=== PATIENT | female | born 1975 | race Caucasian/White ===

== ENCOUNTER 2017-03-06 11:35 | Emergency (ER) | payer MEDICAID ==
[~2017-03-06] VITALS: Ht 177.8 cm; Wt 136.0 kg
[~2017-03-06 11:35] MED LIST: ALBU18HF INH; LABE1POW PO; NPH,100V INJ
[2017-03-06 11:37] VITALS: BP 147/100
== END 2017-03-06 14:30 | disposition home or self-care (01) ==
LOC: ED 12:53
DX: S46.912A Strain of unspecified muscle, fascia and tendon at shoulder and upper arm level, left arm, initial encounter (principal); S05.12XA Contusion of eyeball and orbital tissues, left eye, initial encounter; S60.012A Contusion of left thumb without damage to nail, initial encounter; I10 Essential (primary) hypertension; E11.9 Type 2 diabetes mellitus without complications; E66.01 Morbid (severe) obesity due to excess calories; Z68.41 Body mass index [BMI] 40.0-44.9, adult; J45.909 Unspecified asthma, uncomplicated; W01.0XXA Fall on same level from slipping, tripping and stumbling without subsequent striking against object, initial encounter; Y93.89 Activity, other specified; Y92.89 Other specified places as the place of occurrence of the external cause; Y99.8 Other external cause status
CPT/HCPCS: 70486; 99284

== ENCOUNTER 2020-01-27 17:51 | Inpatient (IN) | payer MEDICAID ==
[~2020-01-27] VITALS: Ht 175.3 cm; Wt 93.1 kg
--- NOTE | 2020-01-27 18:13 | NUR ---
Contacted Pt's Cal, phone number , who states that he is on his way.
[2020-01-27] MEDS ORDERED: SODIUM CHLORIDE 0.9% 1,000 ML IV ONE (18:17)
[2020-01-27] MEDS ORDERED: SODIUM CHLORIDE 0.9% 1,000ML IVBOLUS ONE (18:30)
[2020-01-27] MEDS ORDERED: SODIUM CHLORIDE FLUSH 10ML SYR IVF ONE (18:30)
[2020-01-27 18:58] LABS: BASOPHILS # (AUTO) 0.03 x10^3/uL (0-0.1); BASOPHILS % (AUTO) 0 % (0-1); EOSINOPHILS # (AUTO) 0.09 x10^3/uL (0-0.4); EOSINOPHILS % (AUTO) 1 % (1-7); LYMPHOCYTES # (AUTO) 1.71 x10^3/uL (1-3.4); LYMPHOCYTES % (AUTO) 21 % (22-44); MD NO; MEAN CORPUSCULAR HEMOGLOBIN 23.5 pg (27.0-34.8); MEAN CORPUSCULAR HGB CONC 31.2 g/dL (32.4-35.8); MEAN CORPUSCULAR VOLUME 75.3 fL (80-100); MEAN PLATELET VOLUME 6.1 fL (7.4-10.4); MONOCYTES # (AUTO) 0.69 x10^3/uL (0.2-0.8); MONOCYTES % (AUTO) 8 % (2-9); NEUTROPHILS # (AUTO) 5.82 x10^3/uL (1.8-6.8); NEUTROPHILS % (AUTO) 70 % (42-75); PLATELET COUNT 781 x10^3/uL (130-400); RED BLOOD COUNT 4.25 x10^6/uL (3.82-5.3); RED CELL DISTRIBUTION WIDTH 17.2 % (9.6-15.2)
[2020-01-27 19:01] LABS: INTERNATIONAL NORMALIZED RATIO 1.16 (0.93-1.1); PROTHROMBIN TIME 12.3 Seconds (9.6-11.5)
[2020-01-27 19:04] LABS: ALANINE AMINOTRANSFERASE 17 U/L (12-78); ALBUMIN 1.5 g/dL (3.4-5.0); ANION GAP 11 mmol/L (5-15); CALCIUM 10.9 mg/dL (8.5-10.1); CHLORIDE 90 mmol/L (98-107); CREATININE 0.76 mg/dL (0.55-1.02)
[2020-01-27 19:05] LABS: ALKALINE PHOSPHATASE 269 U/L (45-117); BILIRUBIN,TOTAL 0.4 mg/dL (0.2-1.0); TOTAL PROTEIN 7.5 g/dL (6.4-8.2)
[2020-01-27 19:10] LABS: SALICYLATE LEVEL < 1.7 mg/dL (2.8-20.0)
--- NOTE | 2020-01-27 19:37 | NUR ---
PT CONSTANTLY ATTEMPTING TO GET OUT OF BED. AT BEDSIDE TRYING HIS BEST TO KEEP PT CALM AND SAFE. DR NOTIFIED AND ORDERS RECEIVED.
[2020-01-27] MEDS ORDERED: LORazepam 2 MG/ML, 1ML ONE ×2 (19:41→22:02)
[2020-01-27] MEDS ORDERED: LORazepam 2 MG/ML, 1ML IVPush ONE ×2 (20:00→22:30)
--- NOTE | 2020-01-27 20:13 | NUR ---
PER RAD UNABLE TO COMPLETE CT D/T PT COMPLIANCE.
[2020-01-27 20:28] LABS: MICROSCOPIC INDICATED
[2020-01-27 20:29] LABS: CULTURE INDICATED? YES
--- NOTE | 2020-01-27 20:31 | NUR ---
CT DELAY, PT UNCOOPERATIVE.
[2020-01-27] MEDS ORDERED: OMNIPAQUE 350 MG/ML, 100ML BOTTLE ONE (22:24)
[2020-01-27] MEDS ORDERED: METOCLOPRAMIDE 5 MG/ML, 2ML ONE (23:13)
[2020-01-28] MEDS ORDERED: SODIUM CHLORIDE FLUSH 10ML SYR IVF PRN
[2020-01-28 00:55] VITALS: BP 119/75
[2020-01-28 01:40] VITALS: BP 110/73
[2020-01-28] MEDS ORDERED: SODIUM CHLORIDE 0.9% 1,000ML IVBOLUS ONE (02:00)
[2020-01-28] MEDS ORDERED: VANCOMYCIN PER PHARMACY MC PRN (02:00)
[2020-01-28 02:25] LABS: ANION GAP 10 mmol/L (5-15); CALCIUM 10.3 mg/dL (8.5-10.1); CHLORIDE 95 mmol/L (98-107); CREATININE 0.72 mg/dL (0.55-1.02)
[2020-01-28] MEDS ORDERED: VANCOMYCIN 2,000 MG in SODIUM CHLORIDE 0.9% 500 ML IV SCH (02:30)
[2020-01-28] MEDS ORDERED: hydrALAzine 20 MG/ML, 1ML IVPush PRN (02:30)
[2020-01-28] MEDS ORDERED: PHARMACOKINETIC CONSULTATION MC ONE (02:30)
[2020-01-28] MEDS ORDERED: ONDANSETRON 2MG/ML, 2ML IVPush PRN (02:30)
[2020-01-28] MEDS ORDERED: PHARMACOKINETIC MONITORING MC PRN (02:30)
[2020-01-28] MEDS: PIPERACILLIN/TAZO/PMX 3.375GM 50 ML IV SCH ×4 (03:30→20:58)
[2020-01-28] MEDS: ENOXAPARIN 40 MG/0.4 ML SQ SCH (03:55)
[2020-01-28 04:07] VITALS: BP 99/64
[2020-01-28 04:33] VITALS: BP 98/63
[2020-01-28] MEDS: INSULIN LISPRO 100 UNITS/ML, PEN SQ-INSULIN SCH ×5 (06:21→20:56)
[2020-01-28] MEDS: SODIUM CHLORIDE 0.9% 1,000 ML IV SCH ×2 (06:25→12:33)
[2020-01-28 06:28] LABS: AMPHETAMINE SCREEN, URINE Negative (Negative); BARBITURATE SCREEN, URINE Negative (Negative); BENZODIAZEPINE SCREEN, URINE Negative (Negative); CANNABINOID SCREEN, URINE Negative (Negative); COCAINE SCREEN, URINE Negative (Negative); METHADONE SCREEN, URINE Negative (Negative); OPIATE SCREEN, URINE Negative (Negative)
[2020-01-28 08:03] LABS: RAPID INFLUENZA A Negative (Negative); RAPID INFLUENZA B Negative (Negative)
[2020-01-28 09:56] LABS: BASOPHILS # (AUTO) 0.03 x10^3/uL (0-0.1); BASOPHILS % (AUTO) 0 % (0-1); EOSINOPHILS # (AUTO) 0.09 x10^3/uL (0-0.4); EOSINOPHILS % (AUTO) 1 % (1-7); LYMPHOCYTES # (AUTO) 1.68 x10^3/uL (1-3.4); LYMPHOCYTES % (AUTO) 18 % (22-44); MD NO; MEAN CORPUSCULAR HEMOGLOBIN 23.7 pg (27.0-34.8); MEAN CORPUSCULAR HGB CONC 31.5 g/dL (32.4-35.8); MEAN CORPUSCULAR VOLUME 75.3 fL (80-100); MEAN PLATELET VOLUME 5.8 fL (7.4-10.4); MONOCYTES # (AUTO) 0.91 x10^3/uL (0.2-0.8); MONOCYTES % (AUTO) 10 % (2-9); NEUTROPHILS # (AUTO) 6.75 x10^3/uL (1.8-6.8); NEUTROPHILS % (AUTO) 71 % (42-75); PLATELET COUNT 670 x10^3/uL (130-400); RED BLOOD COUNT 3.79 x10^6/uL (3.82-5.3); RED CELL DISTRIBUTION WIDTH 17.3 % (9.6-15.2)
[2020-01-28] MEDS ORDERED: LACTULOSE 20 GM/30 ML UDC NG PRN (10:00)
[2020-01-28] MEDS ORDERED: PHARMACY MAY ADJ FOR RENAL FX MC SCH (10:00)
[2020-01-28] MEDS ORDERED: FENTANYL PF 100 MCG/2ML IVPush PRN (10:00)
[2020-01-28] MEDS ORDERED: SENNA/DOCUSATE TABLET NG PRN (10:00)
[2020-01-28] MEDS ORDERED: LIDOCAINE-MPF 1%, 2ML ENDO PRN (10:00)
[2020-01-28] MEDS ORDERED: DEXTROSE 50%, 50ML SYRINGE IVPush PRN (10:00)
[2020-01-28] MEDS ORDERED: GLUCAGON 1 MG IM PRN (10:00)
[2020-01-28] MEDS ORDERED: DEXTROSE 4 GM TAB.CHEW PO PRN (10:00)
[2020-01-28] MEDS ORDERED: BISACODYL 10 MG SUPP PR PRN (10:00)
[2020-01-28 10:03] LABS: ALANINE AMINOTRANSFERASE 11 U/L (12-78); ALBUMIN 1.2 g/dL (3.4-5.0); ANION GAP 9 mmol/L (5-15); CALCIUM 9.5 mg/dL (8.5-10.1); CHLORIDE 100 mmol/L (98-107); CREATININE 0.77 mg/dL (0.55-1.02)
[2020-01-28 10:08] LABS: ALKALINE PHOSPHATASE 209 U/L (45-117); BILIRUBIN,TOTAL 0.4 mg/dL (0.2-1.0); TOTAL PROTEIN 6.1 g/dL (6.4-8.2); TRIGLYCERIDES 65 mg/dL (50-200); TROPONIN I 0.631 ng/mL (0.000-0.045)
[2020-01-28] MEDS: ALBUTEROL/IPRATROPIUM 2.5MG/0.5MG, 3 ML INLINE SCH ×2 (10:10→13:46)
--- NOTE | 2020-01-28 11:31 | NUR ---
TF GOAL if needed: w/ propofol: VITAL HIGH PROTEIN @ 60ML/HR off propofol: 65ML/HR
[2020-01-28] MEDS: NOREPINEPHRINE 8 MG in SODIUM CHLORIDE 0.9% 242 ML IV PRN ×2 (11:45→23:22)
[2020-01-28] MEDS: PROPOFOL 100 ML IV PRN ×3 (11:46→20:27)
[2020-01-28] MEDS: SODIUM CHLORIDE FLUSH 10ML SYR IVF SCH ×2 (11:51→20:30)
[2020-01-28] MEDS ORDERED: PROPOFOL 10 MG/ML, 20ML ONE (16:01)
[2020-01-28] MEDS ORDERED: ETOMIDATE 40 MG/20 ML ONE (16:01)
[2020-01-28] MEDS ORDERED: SUCCINYLCHOLINE 20 MG/ML, 10ML ONE (16:01)
[2020-01-28] MEDS ORDERED: PROPOFOL 10 MG/ML, 100ML IV ONE (16:01)
[2020-01-28] MEDS: VANCOMYCIN 1,800 MG in SODIUM CHLORIDE 0.9% 250 ML IV SCH (18:14)
[2020-01-28] MEDS: ALBUTEROL/IPRATROPIUM 2.5MG/0.5MG, 3 ML IPPB SCH ×2 (19:51→22:30)
[2020-01-28] MEDS: BUDESONIDE 0.5 MG/2 ML INHA IPPB SCH (20:12)
[2020-01-28] MEDS: methylPREDNISolone SOD SUCC 125 MG/2 ML IVPush SCH (20:28)
[2020-01-29] MEDS: SODIUM CHLORIDE 0.9% 1,000 ML IV SCH ×2 (01:18→17:02)
[2020-01-29] MEDS: PROPOFOL 100 ML IV PRN ×5 (01:19→20:50)
[2020-01-29] MEDS: ALBUTEROL/IPRATROPIUM 2.5MG/0.5MG, 3 ML IPPB SCH ×6 (02:28→22:16)
[2020-01-29] MEDS: methylPREDNISolone SOD SUCC 125 MG/2 ML IVPush SCH ×4 (03:15→20:49)
[2020-01-29] MEDS: ENOXAPARIN 40 MG/0.4 ML SQ SCH (03:15)
[2020-01-29] MEDS: PIPERACILLIN/TAZO/PMX 3.375GM 50 ML IV SCH ×4 (03:16→21:37)
[2020-01-29 04:24] VITALS: BP 91/48
[2020-01-29] MEDS: INSULIN LISPRO 100 UNITS/ML, PEN SQ-INSULIN SCH (04:36)
[2020-01-29 04:37] LABS: BASOPHILS % (AUTO) 0 % (0-1); EOSINOPHILS # (AUTO) 0.08 x10^3/uL (0-0.4); EOSINOPHILS % (AUTO) 1 % (1-7); LYMPHOCYTES % (AUTO) 6 % (22-44); MD NO; MEAN CORPUSCULAR HGB CONC 31.5 g/dL (32.4-35.8); MEAN CORPUSCULAR VOLUME 76.2 fL (80-100); MEAN PLATELET VOLUME 5.8 fL (7.4-10.4); MONOCYTES # (AUTO) 0.02 x10^3/uL (0.2-0.8); MONOCYTES % (AUTO) 0 % (2-9); NEUTROPHILS # (AUTO) 6.11 x10^3/uL (1.8-6.8); NEUTROPHILS % (AUTO) 92 % (42-75); PLATELET COUNT 705 x10^3/uL (130-400); RED CELL DISTRIBUTION WIDTH 17.5 % (9.6-15.2)
[2020-01-29 04:41] LABS: ANION GAP 13 mmol/L (5-15); CALCIUM 9.8 mg/dL (8.5-10.1); CHLORIDE 102 mmol/L (98-107)
[2020-01-29 04:44] LABS: CREATININE 0.72 mg/dL (0.55-1.02); VANCOMYCIN,TROUGH 18.3 mcg/mL (5.0-10.0)
[2020-01-29] MEDS: VANCOMYCIN 1,800 MG in SODIUM CHLORIDE 0.9% 250 ML IV SCH ×2 (06:02→23:29)
[2020-01-29] MEDS: BUDESONIDE 0.5 MG/2 ML INHA IPPB SCH ×2 (06:40→19:11)
[2020-01-29] MEDS ORDERED: MAGNESIUM SULFATE PMX 2GM/50ML 50 ML IV ONE (08:00)
[2020-01-29] MEDS ORDERED: DEXTROSE 50%, 50ML SYRINGE IV PRN (09:30)
[2020-01-29] MEDS ORDERED: INSULIN REGULAR 100 UNITS/ML, 3ML VIAL IV ONE (09:30)
[2020-01-29] MEDS ORDERED: INSULIN INFUSION FOR ICU PROTOCOL XX SCH (09:30)
[2020-01-29] MEDS: SODIUM CHLORIDE FLUSH 10ML SYR IVF SCH ×2 (10:17→20:50)
[2020-01-29] MEDS: REGULAR INSULIN 100 UNITS in SODIUM CHLORIDE 0.9% 99 ML IV PRN ×2 (10:17→21:09)
[2020-01-29 10:59] LABS: ACETONE, SERUM Large (80mg/dL) (Negative)
[2020-01-29] MEDS: FAMOTIDINE 20 MG/2 ML IVPush SCH (20:49)
[2020-01-29] MEDS: ACETAMINOPHEN 325 MG TABLET PO PRN (20:51)
[2020-01-30] MEDS: ALBUTEROL/IPRATROPIUM 2.5MG/0.5MG, 3 ML IPPB SCH ×2 (03:00→07:18)
[2020-01-30] MEDS: ENOXAPARIN 40 MG/0.4 ML SQ SCH (03:09)
[2020-01-30] MEDS: methylPREDNISolone SOD SUCC 125 MG/2 ML IVPush SCH ×4 (03:09→20:38)
[2020-01-30 04:00] VITALS: BP 96/49
[2020-01-30 04:19] LABS: BASOPHILS # (AUTO) 0.04 x10^3/uL (0-0.1); BASOPHILS % (AUTO) 0 % (0-1); EOSINOPHILS # (AUTO) 0.01 x10^3/uL (0-0.4); EOSINOPHILS % (AUTO) 0 % (1-7); LYMPHOCYTES # (AUTO) 1.08 x10^3/uL (1-3.4); LYMPHOCYTES % (AUTO) 10 % (22-44); MD NO; MEAN CORPUSCULAR HEMOGLOBIN 23.7 pg (27.0-34.8); MEAN CORPUSCULAR HGB CONC 31.6 g/dL (32.4-35.8); MONOCYTES # (AUTO) 0.58 x10^3/uL (0.2-0.8); MONOCYTES % (AUTO) 5 % (2-9); NEUTROPHILS % (AUTO) 84 % (42-75); PLATELET COUNT 882 x10^3/uL (130-400); RED BLOOD COUNT 4.01 x10^6/uL (3.82-5.3); RED CELL DISTRIBUTION WIDTH 17.4 % (9.6-15.2)
[2020-01-30 04:22] LABS: ANION GAP 8 mmol/L (5-15); CALCIUM 9.8 mg/dL (8.5-10.1); CHLORIDE 111 mmol/L (98-107); CREATININE 0.69 mg/dL (0.55-1.02)
[2020-01-30] MEDS: PIPERACILLIN/TAZO/PMX 3.375GM 50 ML IV SCH ×4 (04:27→20:41)
[2020-01-30] MEDS: PROPOFOL 100 ML IV PRN (05:05)
[2020-01-30] MEDS ORDERED: MIDAZOLAM 1 MG/ML, 2ML ONE (06:07)
[2020-01-30] MEDS: SODIUM CHLORIDE 0.9% 1,000 ML IV SCH ×3 (06:11→18:07)
[2020-01-30] MEDS ORDERED: MIDAZOLAM 1 MG/ML, 2ML IVPush PRN (06:30)
[2020-01-30] MEDS: REGULAR INSULIN 100 UNITS in SODIUM CHLORIDE 0.9% 99 ML IV PRN ×2 (06:41→22:03)
[2020-01-30] MEDS: BUDESONIDE 0.5 MG/2 ML INHA IPPB SCH ×2 (07:18→18:49)
[2020-01-30] MEDS: POTASSIUM CHLORIDE 10% 40 MEQ/30 ML UDC PO SCH ×3 (08:47→20:40)
[2020-01-30] MEDS: FAMOTIDINE 20 MG/2 ML IVPush SCH ×2 (08:47→20:39)
[2020-01-30] MEDS: SODIUM CHLORIDE FLUSH 10ML SYR IVF SCH ×2 (08:49→20:39)
[2020-01-30] MEDS: SENNOSIDES 8.8 MG/5 ML ORAL SOL NG SCH ×2 (10:23→20:40)
[2020-01-30] MEDS ORDERED: LACTULOSE 20 GM/30 ML UDC PO PRN (10:30)
[2020-01-30] MEDS: SENNA 176 MG/5 ML ORAL SOL NG PRN ×2 (11:27→11:32)
[2020-01-30] MEDS ORDERED: ALBUTEROL/IPRATROPIUM 2.5MG/0.5MG, 3 ML IPPB PRN (14:30)
[2020-01-30] MEDS: ALBUTEROL/IPRATROPIUM 2.5MG/0.5MG, 3 ML INLINE SCH ×3 (15:35→23:00)
[2020-01-30] MEDS: ACETAMINOPHEN 325 MG TABLET PO PRN (20:40)
[2020-01-30] MEDS: VANCOMYCIN 1,800 MG in SODIUM CHLORIDE 0.9% 250 ML IV SCH (23:42)
[2020-01-31] MEDS: PROPOFOL 100 ML IV PRN ×4 (00:33→22:11)
[2020-01-31] MEDS: ALBUTEROL/IPRATROPIUM 2.5MG/0.5MG, 3 ML INLINE SCH ×6 (02:38→23:00)
[2020-01-31] MEDS: PIPERACILLIN/TAZO/PMX 3.375GM 50 ML IV SCH ×4 (02:49→21:26)
[2020-01-31] MEDS: ENOXAPARIN 40 MG/0.4 ML SQ SCH (02:49)
[2020-01-31] MEDS: methylPREDNISolone SOD SUCC 125 MG/2 ML IVPush SCH ×4 (02:52→21:27)
[2020-01-31 03:59] LABS: ANION GAP 7 mmol/L (5-15); CALCIUM 8.8 mg/dL (8.5-10.1); CHLORIDE 113 mmol/L (98-107)
[2020-01-31 04:02] LABS: CREATININE 0.86 mg/dL (0.55-1.02); TRIGLYCERIDES 101 mg/dL (50-200)
[2020-01-31 04:06] VITALS: BP 99/57
[2020-01-31 04:09] LABS: BASOPHILS % (AUTO) 0 % (0-1); EOSINOPHILS % (AUTO) 0 % (1-7); LYMPHOCYTES # (AUTO) 0.67 x10^3/uL (1-3.4); LYMPHOCYTES % (AUTO) 5 % (22-44); MD NO; MEAN CORPUSCULAR HEMOGLOBIN 23.2 pg (27.0-34.8); MEAN CORPUSCULAR HGB CONC 30.6 g/dL (32.4-35.8); MEAN CORPUSCULAR VOLUME 75.7 fL (80-100); MEAN PLATELET VOLUME 5.9 fL (7.4-10.4); MONOCYTES # (AUTO) 0.29 x10^3/uL (0.2-0.8); MONOCYTES % (AUTO) 2 % (2-9); NEUTROPHILS # (AUTO) 12.15 x10^3/uL (1.8-6.8); NEUTROPHILS % (AUTO) 93 % (42-75); PLATELET COUNT 773 x10^3/uL (130-400); RED BLOOD COUNT 3.78 x10^6/uL (3.82-5.3); RED CELL DISTRIBUTION WIDTH 17.6 % (9.6-15.2)
[2020-01-31] MEDS: BUDESONIDE 0.5 MG/2 ML INHA IPPB SCH ×2 (06:56→19:27)
[2020-01-31] MEDS: ACETAMINOPHEN 325 MG TABLET PO PRN (08:45)
[2020-01-31] MEDS: REGULAR INSULIN 100 UNITS in SODIUM CHLORIDE 0.9% 99 ML IV PRN (08:47)
[2020-01-31] MEDS: FAMOTIDINE 20 MG/2 ML IVPush SCH ×2 (08:48→21:27)
[2020-01-31] MEDS: SODIUM CHLORIDE FLUSH 10ML SYR IVF SCH ×2 (08:48→21:28)
[2020-01-31] MEDS: DOCUSATE 50 MG/5 ML, 10ML UDC PO SCH (08:48)
[2020-01-31] MEDS: SODIUM CHLORIDE 0.9% 1,000 ML IV SCH ×2 (11:48→22:12)
[2020-01-31] MEDS: INSULIN LISPRO 100 UNITS/ML, PEN SQ-INSULIN SCH ×2 (16:23→21:41)
[2020-01-31] MEDS: FUROSEMIDE 20 MG/2 ML IV SCH (16:24)
[2020-01-31] MEDS ORDERED: INSULIN GLARGINE 100 UNITS/ML, PEN SQ-INSULIN SCH (21:00)
[2020-02-01] MEDS: VANCOMYCIN 1,800 MG in SODIUM CHLORIDE 0.9% 250 ML IV SCH ×2 (00:22→23:50)
[2020-02-01] MEDS: methylPREDNISolone SOD SUCC 125 MG/2 ML IVPush SCH ×4 (02:43→21:02)
[2020-02-01] MEDS: ENOXAPARIN 40 MG/0.4 ML SQ SCH (02:44)
[2020-02-01] MEDS: PROPOFOL 100 ML IV PRN (02:46)
[2020-02-01] MEDS: ALBUTEROL/IPRATROPIUM 2.5MG/0.5MG, 3 ML INLINE SCH ×2 (03:36→07:00)
[2020-02-01] MEDS: PIPERACILLIN/TAZO/PMX 3.375GM 50 ML IV SCH ×4 (03:43→21:10)
[2020-02-01 04:09] LABS: BASOPHILS # (AUTO) 0.05 x10^3/uL (0-0.1); BASOPHILS % (AUTO) 0 % (0-1); EOSINOPHILS % (AUTO) 0 % (1-7); LYMPHOCYTES # (AUTO) 0.75 x10^3/uL (1-3.4); LYMPHOCYTES % (AUTO) 6 % (22-44); MD NO; MEAN CORPUSCULAR HEMOGLOBIN 23.7 pg (27.0-34.8); MEAN CORPUSCULAR HGB CONC 31.5 g/dL (32.4-35.8); MEAN CORPUSCULAR VOLUME 75.2 fL (80-100); MEAN PLATELET VOLUME 6.2 fL (7.4-10.4); MONOCYTES # (AUTO) 0.24 x10^3/uL (0.2-0.8); MONOCYTES % (AUTO) 2 % (2-9); NEUTROPHILS # (AUTO) 11.19 x10^3/uL (1.8-6.8); NEUTROPHILS % (AUTO) 92 % (42-75); PLATELET COUNT 718 x10^3/uL (130-400); RED BLOOD COUNT 3.91 x10^6/uL (3.82-5.3); RED CELL DISTRIBUTION WIDTH 17.8 % (9.6-15.2)
[2020-02-01 04:29] LABS: ANION GAP 8 mmol/L (5-15); CALCIUM 8.7 mg/dL (8.5-10.1); CHLORIDE 106 mmol/L (98-107); CREATININE 0.96 mg/dL (0.55-1.02)
[2020-02-01 05:00] VITALS: BP 128/65
[2020-02-01] MEDS: DOCUSATE 50 MG/5 ML, 10ML UDC PO SCH (08:21)
[2020-02-01] MEDS: SODIUM CHLORIDE FLUSH 10ML SYR IVF SCH ×2 (08:49→21:02)
[2020-02-01] MEDS: FAMOTIDINE 20 MG/2 ML IVPush SCH ×2 (08:49→21:02)
[2020-02-01] MEDS: FUROSEMIDE 20 MG/2 ML IV SCH (08:49)
[2020-02-01] MEDS: SODIUM CHLORIDE 0.9% 1,000 ML IV SCH (08:51)
[2020-02-01] MEDS: INSULIN LISPRO 100 UNITS/ML, PEN VERY HIGH DOSE SS SQ-INSULIN SCH ×4 (08:58→21:21)
[2020-02-01] MEDS: BUDESONIDE 0.5 MG/2 ML INHA IPPB SCH ×2 (09:00→22:57)
[2020-02-01] MEDS ORDERED: INSULIN GLARGINE 100 UNITS/ML, PEN SQ-INSULIN SCH (09:00)
[2020-02-01] MEDS ORDERED: ALBUTEROL/IPRATROPIUM 2.5MG/0.5MG, 3 ML NPPB SCH (11:00)
[2020-02-01] MEDS: FUROSEMIDE 40 MG/4 ML IV SCH (17:50)
[2020-02-02] MEDS: SODIUM CHLORIDE 0.9% 1,000 ML IV SCH (00:50)
[2020-02-02] MEDS: ENOXAPARIN 40 MG/0.4 ML SQ SCH (03:00)
[2020-02-02] MEDS: methylPREDNISolone SOD SUCC 125 MG/2 ML IVPush SCH ×4 (03:00→21:58)
[2020-02-02] MEDS: PIPERACILLIN/TAZO/PMX 3.375GM 50 ML IV SCH ×4 (03:00→22:00)
[2020-02-02] MEDS: ACETAMINOPHEN 325 MG TABLET PO PRN ×2 (04:30→08:51)
[2020-02-02 05:00] VITALS: BP 149/82
[2020-02-02 05:52] LABS: BASOPHILS # (AUTO) 0.06 x10^3/uL (0-0.1); BASOPHILS % (AUTO) 0 % (0-1); EOSINOPHILS # (AUTO) 0.01 x10^3/uL (0-0.4); EOSINOPHILS % (AUTO) 0 % (1-7); LYMPHOCYTES # (AUTO) 1.15 x10^3/uL (1-3.4); LYMPHOCYTES % (AUTO) 9 % (22-44); MD NO; MEAN CORPUSCULAR HEMOGLOBIN 23.4 pg (27.0-34.8); MEAN CORPUSCULAR HGB CONC 31.2 g/dL (32.4-35.8); MEAN CORPUSCULAR VOLUME 74.9 fL (80-100); MEAN PLATELET VOLUME 6.6 fL (7.4-10.4); MONOCYTES # (AUTO) 0.42 x10^3/uL (0.2-0.8); MONOCYTES % (AUTO) 3 % (2-9); NEUTROPHILS # (AUTO) 12.01 x10^3/uL (1.8-6.8); NEUTROPHILS % (AUTO) 88 % (42-75); PLATELET COUNT 685 x10^3/uL (130-400); RED BLOOD COUNT 4.65 x10^6/uL (3.82-5.3)
[2020-02-02 05:55] LABS: ANION GAP 7 mmol/L (5-15); CALCIUM 9.1 mg/dL (8.5-10.1); CHLORIDE 97 mmol/L (98-107)
[2020-02-02 05:57] LABS: CREATININE 0.75 mg/dL (0.55-1.02)
[2020-02-02] MEDS: POTASSIUM CHLORIDE 20 MEQ TAB.ER.PRT PO SCH (08:28)
[2020-02-02] MEDS: FUROSEMIDE 40 MG/4 ML IV SCH ×2 (08:28→17:59)
[2020-02-02] MEDS: SODIUM CHLORIDE FLUSH 10ML SYR IVF SCH ×2 (08:30→22:01)
[2020-02-02] MEDS: FAMOTIDINE 20 MG/2 ML IVPush SCH (08:30)
[2020-02-02] MEDS: DOCUSATE 50 MG/5 ML, 10ML UDC PO SCH (08:30)
[2020-02-02] MEDS: INSULIN LISPRO 100 UNITS/ML, PEN VERY HIGH DOSE SS SQ-INSULIN SCH ×4 (08:30→22:00)
[2020-02-02] MEDS ORDERED: INSULIN GLARGINE 100 UNITS/ML, PEN SQ-INSULIN SCH ×3 (09:00→21:00)
[2020-02-02] MEDS: BUDESONIDE 0.5 MG/2 ML INHA IPPB SCH ×2 (09:00→21:00)
[2020-02-02 14:00] VITALS: BP 102/63
[2020-02-02] MEDS ORDERED: INSULIN LISPRO 100 UNIT/ML, 3ML VIAL SQ-INSULIN SCH (17:00)
[2020-02-02] MEDS: INSULIN LISPRO 100 UNITS/ML, PEN SQ-INSULIN SCH (18:18)
[2020-02-02 18:42] VITALS: BP 140/96
[2020-02-03 02:19] VITALS: BP 158/84
[2020-02-03] MEDS: PIPERACILLIN/TAZO/PMX 3.375GM 50 ML IV SCH ×4 (03:01→21:19)
[2020-02-03] MEDS: ENOXAPARIN 40 MG/0.4 ML SQ SCH (03:01)
[2020-02-03] MEDS: ACETAMINOPHEN 325 MG TABLET PO PRN ×3 (03:15→18:50)
[2020-02-03 04:49] LABS: BASOPHILS # (AUTO) 0.07 x10^3/uL (0-0.1); BASOPHILS % (AUTO) 1 % (0-1); EOSINOPHILS % (AUTO) 0 % (1-7); LYMPHOCYTES # (AUTO) 1.09 x10^3/uL (1-3.4); LYMPHOCYTES % (AUTO) 10 % (22-44); MD NO; MEAN CORPUSCULAR HEMOGLOBIN 23.7 pg (27.0-34.8); MEAN CORPUSCULAR HGB CONC 31.3 g/dL (32.4-35.8); MEAN CORPUSCULAR VOLUME 75.7 fL (80-100); MEAN PLATELET VOLUME 6.5 fL (7.4-10.4); MONOCYTES # (AUTO) 0.38 x10^3/uL (0.2-0.8); MONOCYTES % (AUTO) 3 % (2-9); NEUTROPHILS # (AUTO) 9.73 x10^3/uL (1.8-6.8); NEUTROPHILS % (AUTO) 86 % (42-75); PLATELET COUNT 609 x10^3/uL (130-400); RED BLOOD COUNT 4.73 x10^6/uL (3.82-5.3)
[2020-02-03 04:56] LABS: ANION GAP 10 mmol/L (5-15); CALCIUM 8.7 mg/dL (8.5-10.1); CHLORIDE 93 mmol/L (98-107)
[2020-02-03 04:57] LABS: CREATININE 0.81 mg/dL (0.55-1.02)
[2020-02-03 07:55] VITALS: BP 152/76
[2020-02-03] MEDS ORDERED: DOCUSATE 100 MG CAPSULE ONE (08:06)
[2020-02-03] MEDS: methylPREDNISolone SOD SUCC 125 MG/2 ML IVPush SCH (08:17)
[2020-02-03] MEDS: FUROSEMIDE 40 MG/4 ML IV SCH ×2 (08:17→16:17)
[2020-02-03] MEDS: POTASSIUM CHLORIDE 20 MEQ TAB.ER.PRT PO SCH (08:22)
[2020-02-03] MEDS: LISINOPRIL 10 MG TABLET PO SCH ×2 (08:22→20:44)
[2020-02-03] MEDS: DOCUSATE 50 MG/5 ML, 10ML UDC PO SCH (08:23)
[2020-02-03] MEDS: SODIUM CHLORIDE FLUSH 10ML SYR IVF SCH ×2 (08:23→20:47)
[2020-02-03] MEDS: INSULIN LISPRO 100 UNITS/ML, PEN SQ-INSULIN SCH ×3 (08:26→17:26)
[2020-02-03] MEDS: INSULIN LISPRO 100 UNITS/ML, PEN VERY HIGH DOSE SS SQ-INSULIN SCH ×3 (08:27→17:27)
[2020-02-03] MEDS: BUDESONIDE 0.5 MG/2 ML INHA IPPB SCH ×2 (09:00→21:08)
[2020-02-03] MEDS ORDERED: INSULIN GLARGINE 100 UNITS/ML, PEN SQ-INSULIN SCH (09:00)
[2020-02-03] MEDS: ALBUTEROL/IPRATROPIUM 2.5MG/0.5MG, 3 ML NPPB PRN ×2 (11:34→17:41)
[2020-02-03 12:27] VITALS: BP 147/77
[2020-02-03 17:26] LABS: ANION GAP 10 mmol/L (5-15); CALCIUM 9.4 mg/dL (8.5-10.1); CHLORIDE 91 mmol/L (98-107); CREATININE 1.02 mg/dL (0.55-1.02)
[2020-02-03] MEDS: INSULIN REGULAR 100 UNITS/ML, 3ML VIAL SQ-INSULIN SCH ×2 (18:48→21:15)
[2020-02-03 19:10] VITALS: BP 138/73
[2020-02-03] MEDS: TRAZODONE 50MG TABLET PO SCH (20:44)
[2020-02-03] MEDS: INSULIN GLARGINE 100 UNITS/ML, PEN SQ-INSULIN SCH (21:15)
[2020-02-04] MEDS: INSULIN REGULAR 100 UNITS/ML, 3ML VIAL SQ-INSULIN SCH ×6 (00:20→21:35)
[2020-02-04] MEDS: ACETAMINOPHEN 325 MG TABLET PO PRN (00:22)
[2020-02-04 00:24] VITALS: BP 121/67
[2020-02-04] MEDS: PIPERACILLIN/TAZO/PMX 3.375GM 50 ML IV SCH ×4 (03:14→23:29)
[2020-02-04] MEDS: ENOXAPARIN 40 MG/0.4 ML SQ SCH (03:19)
[2020-02-04 04:44] LABS: BASOPHILS # (AUTO) 0.11 x10^3/uL (0-0.1); BASOPHILS % (AUTO) 1 % (0-1); EOSINOPHILS # (AUTO) 0.19 x10^3/uL (0-0.4); EOSINOPHILS % (AUTO) 1 % (1-7); LYMPHOCYTES # (AUTO) 3.65 x10^3/uL (1-3.4); LYMPHOCYTES % (AUTO) 24 % (22-44); MD NO; MEAN CORPUSCULAR HEMOGLOBIN 23.7 pg (27.0-34.8); MEAN CORPUSCULAR HGB CONC 31.4 g/dL (32.4-35.8); MEAN CORPUSCULAR VOLUME 75.6 fL (80-100); MEAN PLATELET VOLUME 6.4 fL (7.4-10.4); MONOCYTES # (AUTO) 1.25 x10^3/uL (0.2-0.8); MONOCYTES % (AUTO) 8 % (2-9); NEUTROPHILS # (AUTO) 9.74 x10^3/uL (1.8-6.8); NEUTROPHILS % (AUTO) 65 % (42-75); PLATELET COUNT 660 x10^3/uL (130-400); RED BLOOD COUNT 5.14 x10^6/uL (3.82-5.3); RED CELL DISTRIBUTION WIDTH 18.2 % (9.6-15.2)
[2020-02-04 04:58] LABS: ANION GAP 6 mmol/L (5-15); CALCIUM 9.7 mg/dL (8.5-10.1); CHLORIDE 96 mmol/L (98-107); CREATININE 0.73 mg/dL (0.55-1.02)
[2020-02-04] MEDS ORDERED: POTASSIUM CHLORIDE 40 MEQ in SODIUM CHLORIDE 0.9% 500 ML IV ONE (06:30)
[2020-02-04] MEDS: FUROSEMIDE 40 MG/4 ML IV SCH (07:46)
[2020-02-04] MEDS: LISINOPRIL 10 MG TABLET PO SCH (07:46)
[2020-02-04] MEDS: DOCUSATE 50 MG/5 ML, 10ML UDC PO SCH ×2 (07:46→07:54)
[2020-02-04] MEDS: LORATADINE 10 MG TABLET PO SCH (07:46)
[2020-02-04] MEDS: POTASSIUM CHLORIDE 20 MEQ TAB.ER.PRT PO SCH (07:46)
[2020-02-04] MEDS: SODIUM CHLORIDE FLUSH 10ML SYR IVF SCH ×2 (07:47→21:27)
[2020-02-04 08:06] VITALS: BP 102/63
[2020-02-04] MEDS: INSULIN GLARGINE 100 UNITS/ML, PEN SQ-INSULIN SCH ×2 (08:21→21:36)
[2020-02-04] MEDS: ALBUTEROL/IPRATROPIUM 2.5MG/0.5MG, 3 ML NPPB PRN ×2 (09:50→19:00)
[2020-02-04] MEDS: BUDESONIDE 0.5 MG/2 ML INHA IPPB SCH ×2 (09:50→19:00)
[2020-02-04] MEDS ORDERED: APAP/CODEINE 300/30MG TABLET PO SCH (13:30)
[2020-02-04 13:37] VITALS: BP 114/72
[2020-02-04 20:06] VITALS: BP 115/68
[2020-02-04] MEDS: TRAZODONE 50MG TABLET PO SCH (23:29)
[2020-02-05 02:09] VITALS: BP 101/64
[2020-02-05 04:43] LABS: ANION GAP 5 mmol/L (5-15); CALCIUM 9.7 mg/dL (8.5-10.1); CHLORIDE 97 mmol/L (98-107); CREATININE 0.59 mg/dL (0.55-1.02)
[2020-02-05 04:45] LABS: BASOPHILS # (AUTO) 0.07 x10^3/uL (0-0.1); BASOPHILS % (AUTO) 1 % (0-1); EOSINOPHILS # (AUTO) 0.25 x10^3/uL (0-0.4); EOSINOPHILS % (AUTO) 3 % (1-7); LYMPHOCYTES # (AUTO) 2.19 x10^3/uL (1-3.4); LYMPHOCYTES % (AUTO) 22 % (22-44); MD NO; MEAN CORPUSCULAR HEMOGLOBIN 23.4 pg (27.0-34.8); MEAN CORPUSCULAR HGB CONC 30.7 g/dL (32.4-35.8); MEAN CORPUSCULAR VOLUME 76.3 fL (80-100); MONOCYTES # (AUTO) 0.78 x10^3/uL (0.2-0.8); MONOCYTES % (AUTO) 8 % (2-9); NEUTROPHILS # (AUTO) 6.87 x10^3/uL (1.8-6.8); NEUTROPHILS % (AUTO) 68 % (42-75); PLATELET COUNT 445 x10^3/uL (130-400); RED BLOOD COUNT 4.77 x10^6/uL (3.82-5.3)
[2020-02-05] MEDS: PIPERACILLIN/TAZO/PMX 3.375GM 50 ML IV SCH ×2 (05:05→11:57)
[2020-02-05] MEDS: ENOXAPARIN 40 MG/0.4 ML SQ SCH (05:07)
[2020-02-05] MEDS: LORATADINE 10 MG TABLET PO SCH (08:09)
[2020-02-05] MEDS: POTASSIUM CHLORIDE 20 MEQ TAB.ER.PRT PO SCH (08:09)
[2020-02-05] MEDS: SODIUM CHLORIDE FLUSH 10ML SYR IVF SCH (08:10)
[2020-02-05] MEDS: DOCUSATE 50 MG/5 ML, 10ML UDC PO SCH (08:10)
[2020-02-05] MEDS: INSULIN GLARGINE 100 UNITS/ML, PEN SQ-INSULIN SCH (08:20)
[2020-02-05] MEDS: INSULIN REGULAR 100 UNITS/ML, 3ML VIAL SQ-INSULIN SCH ×2 (08:20→11:13)
[2020-02-05 08:34] VITALS: BP 96/62
[2020-02-05] MEDS ORDERED: FUROSEMIDE 40 MG TABLET PO SCH (09:00)
[2020-02-05] MEDS: ACETAMINOPHEN 325 MG TABLET PO PRN (11:12)
[2020-02-05] MEDS ORDERED: ALBU18HF INH (11:53)
[2020-02-05] MEDS ORDERED: NPH,100V INJ (11:53)
[2020-02-05] MEDS ORDERED: AMOX1TAB64 PO (11:53)
[2020-02-05 13:45] VITALS: BP 99/63
== END 2020-02-05 15:04 | disposition home or self-care (01) | DRG 870 ==
LOC: ED 20:46 → EDIP 01-28 00:10 → 4NW 01-28 00:27 → 4EST 01-28 04:29 → CCU 01-28 05:35 → 4NW 02-02 18:32 → DCLOUNGE 02-05 14:55
PROVIDERS: ADMIT Family Medicine; ATTEND Hospitalist
PROC: 5A1955Z Respiratory Ventilation, Greater than 96 Consecutive Hours (ICD-10-PCS; principal; 2020-01-28)
PROC: 0BH17EZ Insertion of Endotracheal Airway into Trachea, Via Natural or Artificial Opening (ICD-10-PCS; 2020-01-28)
PROC: 0BJ08ZZ Inspection of Tracheobronchial Tree, Via Natural or Artificial Opening Endoscopic (ICD-10-PCS; 2020-01-28)
PROC: 02HV33Z Insertion of Infusion Device into Superior Vena Cava, Percutaneous Approach (ICD-10-PCS; 2020-01-28)
PROC: B548ZZA Ultrasonography of Superior Vena Cava, Guidance (ICD-10-PCS; 2020-01-28)
DX: A41.9 Sepsis, unspecified organism (principal); E43 Unspecified severe protein-calorie malnutrition; G93.41 Metabolic encephalopathy; J18.9 Pneumonia, unspecified organism; J96.21 Acute and chronic respiratory failure with hypoxia; R65.21 Severe sepsis with septic shock; C64.9 Malignant neoplasm of unspecified kidney, except renal pelvis; C77.1 Secondary and unspecified malignant neoplasm of intrathoracic lymph nodes; C78.01 Secondary malignant neoplasm of right lung; C78.02 Secondary malignant neoplasm of left lung; C79.51 Secondary malignant neoplasm of bone; E87.1 Hypo-osmolality and hyponatremia; J81.1 Chronic pulmonary edema; Z99.11 Dependence on respirator [ventilator] status; D50.9 Iron deficiency anemia, unspecified; E11.65 Type 2 diabetes mellitus with hyperglycemia; Z68.30 Body mass index [BMI] 30.0-30.9, adult; Z88.8 Allergy status to other drugs, medicaments and biological substances; E83.52 Hypercalcemia; E87.6 Hypokalemia; I10 Essential (primary) hypertension; J45.909 Unspecified asthma, uncomplicated; T38.0X5A Adverse effect of glucocorticoids and synthetic analogues, initial encounter; Y92.89 Other specified places as the place of occurrence of the external cause; Z51.5 Encounter for palliative care; Z79.4 Long term (current) use of insulin; Z88.5 Allergy status to narcotic agent; Z90.5 Acquired absence of kidney; Z92.21 Personal history of antineoplastic chemotherapy; Z99.81 Dependence on supplemental oxygen
CPT/HCPCS: 36415; 36600; 84145; 87400; 99291; J3490; J7626; 31622; 31624; 70450; 71045; 71275; 80048; 80053; 80202; 80307; 81001; 82010; 82140; 82330; 82803; 82962; 83036; 83605; 83735; 83880; 84100; 84132; 84443; 84478; 84484; 85025; 85610; 85730; 87015; 87040; 87070; 87081; 87086; 87102; 87116; 87205; 87206; 88112; 93005; 94002; 94003; 94640; G0378; J1650; J1815; J1940; J2250; J2405; J2543; J2704; J3370; J3480; Q9967; J0330; J2060; J2930; J3475; J7030; J7040; J7050